=== PATIENT | female | born 1960 | race Caucasian/White ===

== ENCOUNTER → 2018-07-02 | Outpatient (REF) | payer OTHER ==
[~2018-07-02] MED LIST: ADLT ASA LOW81 MG PO; AMOXICILLIN500 MG PO; AUGMENTIN875TAB PO; BENZONATATE200 MG PO; BIOTIN5000 MC2 PO; CADUET5 MG/20 MG; CADUET5 MG/20 MG OR; CADUET5 MG/20 MG PO; CIPRODEX1 ML AD; COMBIVENT IN; COMBIVENT RESPIMAT IN; DEPO-MEDROL80 MG/ML IM; DIFLUCAN150 MG PO; FLONASE NASAL50 MCG; LEVOTHROID200 MCG; LEVOTHROID300 MCG PO; LEVOTHYROXIN100 MCG PO; LEVOTHYROXIN75 MC1; LEVOTHYROXINE300 MCG PO; MEDDOSEPAK OR; MEDDOSEPAK PO; MUCINEX600 MG PO; MULTIVITAMI1 OR; PREDNISONE20 MG PO; PROAIR HFA IN; SYMBICORT1 AE1 IN
[2018-07-02 07:22] LABS: HEMOGLOBIN 13.3 g/dl (12.0-16.0); IMMATURE GRANULOCYTES 0.2 % (0.0-5.0); MEAN CELL VOLUME 92.8 fL CALC (80.0-100.0); MEAN CORPUSCULAR HGB 30.1 pG CALC (26.0-32.0); MEAN CORPUSCULAR HGB CONC 32.4 g/L CALC (32.0-36.0); NEUT# 3.03 thou/uL (2.00-7.15); RED BLOOD COUNT 4.42 mill/uL (4.20-5.60); RED CELL DISTRI WIDTH 12.8 % (11.5-15.5)
[2018-07-02 07:34] LABS: ALBUMIN 3.9 g/dL (3.2-5.0); ALKALINE PHOSPHATASE 82 u/l (38-126); ANION GAP 12 (6-22 (CALC)); BILIRUBIN, TOTAL 0.6 mg/dL (0.0-1.4); BUN 9 mg/dL (7-17); BUN/CREATININE RATIO 14 (12-20 (CALC)); CALCULATED LDLCHOLESTEROL 129 mg/dL (62-129 (CALC)); CARBON DIOXIDE 27 mmol/l (22-30); CHLORIDE 107 mmol/l (95-108); CHOLESTEROL HDL RATIO 4.3 (<4.4 (CALC)); CREATININE 0.7 mg/dL (0.5-1.0); GFR > 60 ML/MIN (>=60 (CALC)); GFR FOR AFR.AMER. > 60 ML/MIN (>=60 (CALC)); HDL CHOLESTEROL 47 mg/dL (>=40); POTASSIUM 4.4 mmol/l (3.5-5.1); SODIUM 141 mmol/l (137-146); TOTAL CHOLESTEROL 203 mg/dl (0-199); TOTAL TRIGLYCERIDES 132 mg/dl (30-149); VLDL CHOLESTROL 26 mg/dl (2-49 (CALC))
[2018-07-02 07:35] LABS: SGOT/AST 80 u/l (14-36)
[2018-07-02 08:05] LABS: TSH, 3RD GENERATION 0.58 uIU/mL (0.47 - 4.68)
== END | disposition home or self-care (01) | DRG 639 ==
LOC: LAB 06:30
PROVIDERS: ATTEND Family Medicine
DX: E11.9 Type 2 diabetes mellitus without complications (principal); E78.5 Hyperlipidemia, unspecified; R73.9 Hyperglycemia, unspecified; R53.83 Other fatigue; Z00.00 Encounter for general adult medical examination without abnormal findings; I10 Essential (primary) hypertension; E03.9 Hypothyroidism, unspecified; E53.8 Deficiency of other specified B group vitamins

== ENCOUNTER → 2018-07-10 | Outpatient (REF) ==
[2018-07-10 10:54] LABS: CHOLESTEROL HDL RATIO 4.4 (<4.4 (CALC))
== END | disposition home or self-care (01) | DRG 951 ==
LOC: LAB 09:40
PROVIDERS: ATTEND Family Medicine
DX: Z02.6 Encounter for examination for insurance purposes (principal)

== ENCOUNTER 2019-11-08 15:36 | Emergency (ER) | payer OTHER ==
[~2019-11-08] VITALS: Ht 172.7 cm; Wt 100.0 kg
[2019-11-08] MEDS ORDERED: VENTOLIN HFA IN ×2 (16:37→16:47)
[2019-11-08] MEDS ORDERED: ZITHROMAX250 MG PO ×2 (16:37→16:47)
[2019-11-08] MEDS ORDERED: MEDDOSEPAK PO ×2 (16:37→16:47)
[2019-11-08] MEDS ORDERED: ALBUTEROL SUL0.083 % IN ×2 (16:37→16:47)
[2019-11-08 16:53] VITALS: BP 112/58
== END 2019-11-08 16:54 | disposition home or self-care (01) | DRG 203 ==
LOC: ED 15:36
DX: J20.9 Acute bronchitis, unspecified (principal)

== ENCOUNTER 2020-07-14 14:58 | Emergency (ER) | payer OTHER ==
[~2020-07-14] VITALS: Ht 172.7 cm; Wt 100.0 kg
[~2020-07-14 14:58] MED LIST changes: +ALBUTEROL SUL0.083 % IN; +VENTOLIN HFA IN; +ZITHROMAX250 MG PO
[2020-07-14 16:15] VITALS: BP 116/81
== END 2020-07-14 16:15 | disposition home or self-care (01) | DRG 605 ==
LOC: ED 14:58
DX: S50.01XA Contusion of right elbow, initial encounter (principal); W18.39XA Other fall on same level, initial encounter; Y92.89 Other specified places as the place of occurrence of the external cause; Y99.0 Civilian activity done for income or pay